=== PATIENT | male | born 1990 | race Caucasian/White ===

== ENCOUNTER 2021-05-03 10:58 | Emergency (ER) | payer OTHER ==
[2021-05-03 12:17] LABS: SARS-COV-2 RT PCR POSITIVE (NEGATIVE)
--- NOTE | 2021-05-03 12:24 | EDPHYS ---
Physician Documentation [facility] Name: Kenny Kwon Age: 31 yrs Sex: Male : 1990 Arrival Date: 05/03/2021 Time: 11: Bed Waiting Private MD: ED Physician Vik Woodall HPI: 05/03 12:23 This 31 yrs old Male presents to ER via Ambulatory with complaints of Cough, Chest kb Congestion. 12:23 The patient or guardian reports cough, that is intermittent, described as mild. Onset: kb The symptoms/episode began/occurred 5 day(s) ago. Severity of symptoms: At their worst the symptoms were mild, moderate, in the emergency department the symptoms are unchanged. Modifying factors: The symptoms are alleviated by nothing, the symptoms are aggravated by nothing. Associated signs and symptoms: Pertinent positives: rhinorrhea, sore throat, Pertinent negatives: chest pain, diarrhea, ear ache, fever, nausea, vomiting. The patient has not experienced similar symptoms in the past. The patient has not recently seen a physician. Historical: - Allergies: 11:08 No Known Allergies; ss - Home Meds: 11:08 None [Active]; ss - PMHx: 11:08 None; ss - Immunization history:: Client reports having NOT received the Covid vaccine. - Social history:: Smoking status: Patient reports use of chewing tobacco. ROS: 12:22 Constitutional: Negative for fever, chills, and weight loss. kb 12:22 ENT: Positive for rhinorrhea, sinus congestion, sore throat. 12:22 Respiratory: Positive for cough, Negative for dyspnea on exertion, hemoptysis, orthopnea, pleurisy, shortness of breath, sputum production, wheezing. 12:22 All other systems are negative. Exam: 12:22 Constitutional: This is a well developed, well nourished patient who is awake, alert, kb and in no acute distress. Head/Face: Normocephalic, atraumatic. ENT: Moist Mucous membranes Cardiovascular: Regular rate and rhythm with a normal S1 and S2. No gallops, murmurs, or rubs. No pulse deficits. Respiratory: Respirations even and unlabored. No increased work of breathing. Talking in full sentences Skin: Warm, dry with normal turgor. Normal color. MS/ Extremity: Pulses equal, no cyanosis. Neurovascular intact. Full, normal range of motion. Neuro: Awake and alert, GCS 15, oriented to person, place, time, and situation. Moves all extremities. Normal gait. Psych: Awake, alert, with orientation to person, place and time. Behavior, mood, and affect are within normal limits. Vital Signs: 11:06 BP 147 / 108; Pulse 85; Resp 18; Temp 97.9(TE); Pulse Ox 100% on R/A; Weight 93.89 kg; ss Height 6 ft. 0 in. (182.88 cm); 11:06 Body Mass Index 28.07 (93.89 kg, 182.88 cm) ss MDM: 11:07 Patient medically screened. kb 12:22 Data reviewed: vital signs, nurses notes. Data interpreted: Pulse oximetry: on room air kb is 100 %. Interpretation: normal. Counseling: I had a detailed discussion with the patient and/or guardian regarding: the historical points, exam findings, and any diagnostic results supporting the discharge/admit diagnosis, lab results, the need for outpatient follow up, a family practitioner, to return to the emergency department if symptoms worsen or persist or if there are any questions or concerns that arise at home. 05/03 11:06 Order name: COVID-19/FLU A+B (Document "Date of Onset" if Symptomatic); Complete Time: ss 12:21 Administered Medications: No medications were administered Disposition: 15:37 Co-signature as Attending Physician, Vik Woodall MD I agree with the assessment and rn plan of care. Attestation: The patient's history, exam findings, diagnostics, and a summary of any interventions or procedures was reviewed in detail with Leila AYALA. Disposition Summary: 05/03/21 12:23 Discharge Ordered Location: Home kb Condition: Stable kb Diagnosis - Coronavirus infection, unspecified kb Followup: kb - With: Emergency Department - When: As needed - Reason: Worsening of condition Followup: kb - With: Private Physician - When: 2 - 3 days - Reason: Recheck today's complaints, Continuance of care, Re-evaluation by your physician Discharge Instructions: - Discharge Summary Sheet kb - Viral Respiratory Infection, Hdjc-Hg-Syru kb - COVID-19 kb Forms: - Medication Reconciliation Form kb - Thank You Letter kb - Antibiotic Education kb - Prescription Opioid Use kb Signatures: Dispatcher [employer] Leila Bonilla, ASSOCIATE FACULTY-C ASSOCIATE FACULTY-Ckb Vik Woodall MD MD rn Daria Seymour RN RN ss Corrections: (The following items were deleted from the chart) 12:23 12:22 ENT: Positive for rhinorrhea, sinus congestion, kb kb
--- NOTE | 2021-05-03 12:24 | ER ---
Nurse's Notes [facility] Name: Kenny Kwon Age: 31 yrs Sex: Male : 1990 Arrival Date: 05/03/2021 Time: 11:01 Bed Waiting Private MD: Diagnosis: Coronavirus infection, unspecified Presentation: 05/03 11:06 Chief complaint: Patient states: cough, congestion, sore throat that began 5 days ago. ss Denies fever/ chills/ body aches. Coronavirus screen: Client presents with at least one sign or symptom that may indicate coronavirus-19. Ebola Screen: Patient denies exposure to infectious person. Patient denies travel to an Ebola-affected area in the 21 days before illness onset. Initial Sepsis Screen: Does the patient meet any 2 criteria? No. Patient's initial sepsis screen is negative. Does the patient have a suspected source of infection? No. Patient's initial sepsis screen is negative. Risk Assessment: Do you want to hurt yourself or someone else? Patient reports no desire to harm self or others. Onset of symptoms was April 29, 2021. 11:06 Method Of Arrival: Ambulatory ss 11:06 Acuity: JACI 4 ss Historical: - Allergies: 11:08 No Known Allergies; ss - Home Meds: 11:08 None [Active]; ss - PMHx: 11:08 None; ss - Immunization history:: Client reports having NOT received the Covid vaccine. - Social history:: Smoking status: Patient reports use of chewing tobacco. Vital Signs: 11:06 BP 147 / 108; Pulse 85; Resp 18; Temp 97.9(TE); Pulse Ox 100% on R/A; Weight 93.89 kg; ss Height 6 ft. 0 in. (182.88 cm); 11:06 Body Mass Index 28.07 (93.89 kg, 182.88 cm) ED Course: 11:01 Patient arrived in ED. ds1 11:07 Leila Shah FNP-C [facility] kb 11:07 Vik Woodall MD is Attending Physician. kb 11:08 Triage completed. ss 11:08 Arm band placed on right wrist. ss Administered Medications: No medications were administered Outcome: 12:23 Discharge ordered by . kb 12:28 Patient left the ED. kb Signatures: Leila Shah BATCH HEAT TREAT OPERATOR-C BATCH HEAT TREAT OPERATOR-Ckb Vilma Piedra ds1 Daria Seymour, RN RN ss
[2021-05-03 12:32] VITALS: BP 147/108; TEMP 97.9; O2SAT 100
== END 2021-05-03 12:28 | disposition home or self-care (01) ==
LOC: EDSEX 10:58 → ER 10:58
DX: U07.1 COVID-19 (principal)
CPT/HCPCS: 0240U; 99281

== ENCOUNTER 2021-05-07 12:31 | Emergency (ER) | payer OTHER ==
--- OUTSIDE RECORDS SUMMARY | 2021-05-07 12:34 | XMS REPORT | Continuity of Care Document ---
:1990 Author Organization [facility] t Address [address] [place] [address] Care Team Providers Name Role Phone KRISTEN FALLON Attending Clinician Unavailable Deven GÓMEZ Attending Clinician Unavailable Problems This patient has no known problems. Allergies, Adverse Reactions, Alerts Allergy Allergy Status Severity Reaction(s) Onset Inactive Treating Comm ents Source Name Type Date Date Clinician NO KNOWN Drug Active [facility] ALLERGIE Class [facility] Medications This patient has no known medications. Procedures This patient has no known procedures. Encounters Start End Encounter Admission Attending Care Care Encounter Source Date/Time Date/Time Type Type Clinicians Facility Department ID 2020-11-25 2020-11-25 Emergency X January [facility] [facility] ERT [id number] 18:11:00 18:11:00 [facility] 2020-11-11 2020-11-11 Emergency X [place] [facility] ERT [id number] 09:14:00 09:14:00 MELITA [facility] Results This patient has no known results.
--- NOTE | 2021-05-07 13:03 | ER ---
Nurse's Notes [facility] Name: Kenny Kwon Age: 31 yrs Sex: Male : 1990 Arrival Date: 05/07/2021 Time: 12:32 Bed Waiting Private MD: Diagnosis: Elevated blood-pressure reading, without diagnosis of hypertension-And encounter for testing for coronavirus Presentation: 05/07 12:44 Chief complaint: Patient states: Tested positive last week for COVID and is wanting ww another test. Also complaining of dizziness and concerned for high blood pressure. Denies any cough, congestion and sore throat. Ebola Screen: Patient negative for fever greater than or equal to 101.5 degrees Fahrenheit, and additional compatible Ebola Virus Disease symptoms Patient denies exposure to infectious person. Initial Sepsis Screen: Does the patient meet any 2 criteria? No. Patient's initial sepsis screen is negative. Does the patient have a suspected source of infection? No. Patient's initial sepsis screen is negative. Risk Assessment: Do you want to hurt yourself or someone else? Patient reports no desire to harm self or others. Onset of symptoms is unknown. 12:44 Method Of Arrival: Ambulatory ww 12:44 Acuity: JACI 5 ww 12:44 Coronavirus screen: Client denies travel out of the [place] in the last 14 days. ww Triage Assessment: 12:44 General: Appears in no apparent distress. comfortable, Behavior is calm, cooperative, ww appropriate for age. Pain: Denies pain. EENT: No deficits noted. No signs and/or symptoms were reported regarding the EENT system. Neuro: No deficits noted. Level of Consciousness is awake, alert, obeys commands, Oriented to person, place, time, situation. Cardiovascular: Reports dizziness. Respiratory: No deficits noted. Airway is patent Respiratory effort is even, unlabored, Respiratory pattern is regular, symmetrical. GI: No deficits noted. No signs and/or symptoms were reported involving the gastrointestinal system. : No deficits noted. No signs and/or symptoms were reported regarding the genitourinary system. Derm: No deficits noted. No signs and/or symptoms reported regarding the dermatologic system. Skin is intact, is healthy with good turgor, Skin is pink, warm \\T\\ dry. Musculoskeletal: No deficits noted. No signs and/or symptoms reported regarding the musculoskeletal system. Historical: - Allergies: 13:09 No Known Allergies; ww - Immunization history:: Client reports having NOT received the Covid vaccine. - Social history:: Patient/guardian denies using alcohol, street drugs, The patient lives alone, with family, Smoking status: unknown. Screenin:50 Abuse screen: Denies threats or abuse. Denies injuries from another. Nutritional ww screening: No deficits noted. Tuberculosis screening: No symptoms or risk factors identified. Fall Risk None identified. Vital Signs: 12:44 BP 153 / 103; Pulse 86; Resp 18; Temp 98.4(TE); Pulse Ox 99% on R/A; Weight 93.89 kg; ww Height 6 ft. 0 in. (182.88 cm); Pain 0/10; 12:44 Body Mass Index 28.07 (93.89 kg, 182.88 cm) ww ED Course: 12:32 Patient arrived in ED. am2 12:44 Arm band placed on left wrist. ww 12:45 Brian Cedillo MD is Attending Physician. ma2 12:48 Triage completed. ww 13:08 COVID-19 (Coronavirus) Document "Date of Onset" if Symptomatic Sent. ww 13:08 No provider procedures requiring assistance completed. Patient did not have IV access ww during this emergency room visit. 13:09 Patient has correct armband on for positive identification. ww Administered Medications: No medications were administered Outcome: 13:03 Discharge ordered by . ma2 13:08 Discharged to home ambulatory. ww 13:08 Condition: stable 13:08 Discharge instructions given to patient, Instructed on discharge instructions, follow up and referral plans. safety practices. 13:09 Patient left the ED. ww Addendum: 05/10/2021 16:40 Addendum: COVID-19 Result: Negative result given to RN to notify pt. Contacted by: arturo Huff RN. Signatures: Daria Seymour RN RN ss Moreno, Amanda am2 Brian Cedillo MD MD ma2 Sherine Bedoya RN RN ww Corrections: (The following items were deleted from the chart) 05/07 12:49 12:44 BP 153 / 103; Pulse 86bpm; Resp 18bpm; Pulse Ox 99% RA; ww ww 12:50 12:44 BP 153 / 103; Pulse 86bpm; Resp 18bpm; Pulse Ox 99% RA; Temp 98.4F Temporal; ww ww
--- NOTE | 2021-05-07 13:03 | EDPHYS ---
Physician Documentation [facility] Name: Kenny Kwon Age: 31 yrs Sex: Male : 1990 Arrival Date: 05/07/2021 Time: 12:32 Bed Waiting Private MD: ED Physician Brian Cedillo HPI: 05/07 12:59 This 31 yrs old Male presents to ER via Ambulatory with complaints of covid test. ma2 12:59 Onset: The symptoms/episode began/occurred gradually, 2 day(s) ago. Severity of ma2 symptoms: At their worst the symptoms were very mild in the emergency department the symptoms are unchanged. The patient has not experienced similar symptoms in the past. Historical: - Allergies: 13:09 No Known Allergies; ww - Immunization history:: Client reports having NOT received the Covid vaccine. - Social history:: Patient/guardian denies using alcohol, street drugs, The patient lives alone, with family, Smoking status: unknown. ROS: 12:59 Constitutional: Negative for fever, chills, and weight loss. ma2 12:59 All other systems are negative. Exam: 12:59 Constitutional: This is a well developed, well nourished patient who is awake, alert, ma2 and in no acute distress. Head/Face: Normocephalic, atraumatic. Eyes: Pupils equal round and reactive to light, extra-ocular motions intact. Lids and lashes normal. Conjunctiva and sclera are non-icteric and not injected. Cornea within normal limits. Periorbital areas with no swelling, redness, or edema. ENT: Nares patent. No nasal discharge, no septal abnormalities noted. Tympanic membranes are normal and external auditory canals are clear. Oropharynx with no redness, swelling, or masses, exudates, or evidence of obstruction, uvula midline. Mucous membranes moist. Neck: Trachea midline, no thyromegaly or masses palpated, and no cervical lymphadenopathy. Supple, full range of motion without nuchal rigidity, or vertebral point tenderness. No Meningismus. Chest/axilla: Normal chest wall appearance and motion. Nontender with no deformity. No lesions are appreciated. Cardiovascular: Regular rate and rhythm with a normal S1 and S2. No gallops, murmurs, or rubs. Normal PMI, no JVD. No pulse deficits. Respiratory: Lungs have equal breath sounds bilaterally, clear to auscultation and percussion. No rales, rhonchi or wheezes noted. No increased work of breathing, no retractions or nasal flaring. Abdomen/GI: Soft, non-tender, with normal bowel sounds. No distension or tympany. No guarding or rebound. No evidence of tenderness throughout. Skin: Warm, dry with normal turgor. Normal color with no rashes, no lesions, and no evidence of cellulitis. MS/ Extremity: Pulses equal, no cyanosis. Neurovascular intact. Full, normal range of motion. Neuro: Awake and alert, GCS 15, oriented to person, place, time, and situation. Cranial nerves II-XII grossly intact. Motor strength 5/5 in all extremities. Sensory grossly intact. Cerebellar exam normal. Normal gait. Vital Signs: 12:44 BP 153 / 103; Pulse 86; Resp 18; Temp 98.4(TE); Pulse Ox 99% on R/A; Weight 93.89 kg; ww Height 6 ft. 0 in. (182.88 cm); Pain 0/10; 12:44 Body Mass Index 28.07 (93.89 kg, 182.88 cm) ww MDM: 12:59 Differential Diagnosis Patient here for COVID test. Data reviewed: vital signs, nurses ma2 notes, EMS record, shelter records, diagnostic data from outside facility, old medical records, lab test result(s). Counseling: I had a detailed discussion with the patient and/or guardian regarding: the historical points, exam findings, and any diagnostic results supporting the discharge/admit diagnosis, the presence of at least one elevated blood pressure reading (>120/80) during this emergency department visit, the need for outpatient follow up. Response to treatment: the patient's symptoms have markedly improved after treatment. 13:03 Patient medically screened. ma2 05/07 12:56 Order name: COVID-19 (Coronavirus) Document "Date of Onset" if Symptomatic eb 05/07 12:56 Order name: CORONAVIRUS EDMS Administered Medications: No medications were administered Disposition Summary: 05/07/21 13:03 Discharge Ordered Location: Home ma2 Condition: Stable ma2 Diagnosis - Elevated blood-pressure reading, without diagnosis of hypertension - And encounter ma2 for testing for coronavirus(05/07/21 13:03) Followup: ma2 - With: Private Physician - When: Tomorrow - Reason: Continuance of care Discharge Instructions: - Discharge Summary Sheet ss - How to Take Your Blood Pressure, Ocib-ce-Idyi ma2 - DASH Eating Plan ma2 Forms: - Medication Reconciliation Form ma2 - Thank You Letter ma2 - Antibiotic Education ma2 - Prescription Opioid Use ma2 Signatures: Dispatcher [employer] EDBrian Aguilera MD MD ma2 Sherine Bedoya RN RN ww Corrections: (The following items were deleted from the chart) 13:03 13:03 Elevated blood-pressure reading, without diagnosis of hypertension ma2 ma2
[2021-05-07 13:27] VITALS: BP 153/103; TEMP 98.4; O2SAT 99
== END 2021-05-07 13:09 | disposition home or self-care (01) ==
LOC: ER 12:31
DX: Z20.822 Contact with and (suspected) exposure to COVID-19 (principal); R03.0 Elevated blood-pressure reading, without diagnosis of hypertension
CPT/HCPCS: 99283; U0002